=== PATIENT | male | born 1970 | race Caucasian/White ===

== ENCOUNTER 2016-12-21 09:10 | Inpatient (IN) | payer BC ==
--- NOTE | 2016-12-21 09:14 | PDOC ---
Attending Attestation - Resident Resident Name: Joe Hyatt - ED Attending Attestation I have performed the following: I have examined & evaluated the patient, The case was reviewed & discussed with the resident, I agree w/resident's findings & plan, Exceptions are as noted - HPI HPI: 12/21/16 09:20 The patient is a 46 year old male with a significant past medical history of diverticulosis, anxiety and MARTIR, who presents to the ED complaining of abdominal pain, nausea, vomiting and diarrhea. He was constipated last week and took an over the counter laxative (diarrhea). He denies fever. - Physicial Exam PE: 12/21/16 09:21 He is well appearing and in no acute distress Abdomen is soft with minimal tenderness in the left lower quadrant 12/21/16 09:35 12/21/16 14:58 - Medical Decision Making 12/21/16 09:37 He is well appearing and in no pain He has mild left lower quadrant tenderness on deep palpation He is anxious, however Will obtain basic labs 12/21/16 10:52 Case discussed with PCP who verifies that hemoglobin is near baseline and that his polycythemia is chronic and due to MARTIR Low bicarbonate noted, with normal anion gap I suspect this is a metabolic compensation for a respiratory alkalosis due to anxiety Will administer additional IVF Will obtain lactic acid to further exclude bowel ischemia 12/21/16 11:35 CRP elevation noted GIven the LLQ tenderness and elevated CRP, will obtain CT of the abdomen and pelvis 12/21/16 14:43 CT noted, with evidence of possible small bowel obstruction Of note, given his diarrhea, complete SBO seems extremely unlikely ? partial SBO vs dialated lops of small bowel in the context of a diarrheal illness Clinical impression: Small bowel obstruction Polycythemia vera Will admit Inpatient team to consult surgery 12/21/16 14:58 <Mustapha Bah - Last Filed: 12/21/16 15:00> ED Treatment Course - LABORATORY CBC & Chemistry Diagram: 12/21/16 09:40 12/21/16 09:40 - ADDITIONAL ORDERS Additional order review: Laboratory Results 12/21/16 12/21/16 12/21/16 10:55 09:40 09:40 Sodium 135 L Potassium 4.5 D Chloride 111 H Carbon Dioxide 17 L D Anion Gap 7 L BUN 28 H D Creatinine 0.9 Creat Clearance w eGFR > 60 Random Glucose 127 H D Lactic Acid 0.620 Calcium 10.2 Total Bilirubin 1.3 H D AST 25 ALT 23 Alkaline Phosphatase 93 H C-Reactive Protein 1.8 H Total Protein 8.7 H Albumin 5.2 H Lipase 30 12/21/16 09:40 RBC 5.92 H D MCV 90.9 MCHC 34.1 RDW 13.3 MPV 7.9 Neutrophils % 66.9 Lymphocytes % 16.8 D Monocytes % 12.9 H Eosinophils % 1.4 D Basophils % 2.0 D - RADIOLOGY Radiograph Interpretation: 12/21/16 14:54 CT Abdomen/Pelvis Impression: Several dilated proximal small bowel loops are noted which could be on the basis of obstruction versus probably less likely a localized ileus. No gross obstructing lesion is identified on this exam. There appears to be either nonspecific eccentric inferior rectal wall thickening (versus representing adherent debris). Correlation with colonoscopy is suggested. Increased intraluminal fluid is seen within the colon and distal small bowel which could be on the basis of recurrent diarrheal illness. Reported By: Miguel Ángel Solo MD - Medications Given in the ED: ED Medications Discontinued Medications Generic Name Dose Route Start Last Admin Trade Name Freq PRN Reason Stop Dose Admin Sodium Chloride 1,000 mls @ 1,000 mls/hr 12/21/16 10:52 12/21/16 11:04 Normal Saline - IV 12/21/16 11:51 1,000 mls/hr ASDIR STA Administration Ondansetron HCl 4 mg 12/21/16 09:38 12/21/16 09:50 Zofran Odt - SL 12/21/16 09:39 4 mg ONCE ONE Administration Ondansetron HCl 4 mg 12/21/16 10:30 12/21/16 10:30 Zofran Injection IVPUSH 12/21/16 10:31 4 mg ONCE ONE Administration <Alissa Lopez - Last Filed: 12/21/16 14:54> - LABORATORY CBC & Chemistry Diagram: 12/21/16 09:40 12/21/16 09:40 <Mustapha Bah - Last Filed: 12/21/16 15:00>
[2016-12-21 09:18] VITALS: BMI 30.1
[2016-12-21] MEDS ORDERED: ONDANSETRON *ODT* 4 MG TABLET SL ONE (09:38)
[2016-12-21] MEDS: SODIUM CHLORIDE 1,000 ML IV SCH (09:45)
[2016-12-21] MEDS ORDERED: ONDANSETRON *ODT* 4 MG TABLET ONE (09:49)
[2016-12-21 09:50] LABS: EOSINOPHIL 1.4 % (0-4.5); MCHC 34.1 g/dl (32.0-35.9); MEAN CELL VOLUME 90.9 fl (80-96); MEAN PLT VOLUME 7.9 fl (7.5-11.1); NEUTROPHILS 66.9 % (42.8-82.8); PLATELET COUNT 337 K/MM3 (134-434); RDW 13.3 % (11.9-15.9); WHITE BLOOD COUNT 9.2 K/mm3 (4.0-10.8)
--- NOTE | 2016-12-21 09:54 | PDOC ---
History of Present Illness - General Chief Complaint: Pain Stated Complaint: NAUSEA, ABD PAIN, DIARRHEA Time Seen by Provider: 12/21/16 09:14 History Source: Patient Exam Limitations: No Limitations - History of Present Illness Travel History: No Initial Comments: 46 yo M with MARTIR and polycythemia presented to the ED with watery diarrhea x 3 days. The diarrhea is associated with lower quadrants pain and nausea. The abd pain is constant, pressure-like, 6/10, radiates to the back. He denies lactose intolerance, sick contact, recent travel, fever, chills, chest pain. Past History - Past Medical History Allergies/Adverse Reactions: Allergies Allergy/AdvReac Type Severity Reaction Status Date / Time No Known Allergies Allergy Verified 12/21/16 09:11 Home Medications: Ambulatory Orders Amlodipine Besylate 5 mg PO DAILY 12/21/16 Paroxetine HCl [Paxil] 40 mg PO DAILY 12/21/16 Sennosides [Senna -] 1 tab PO HS 12/21/16 GI Disorders: Yes (CONSTIPATION) HTN: Yes Psychiatric Problems: Yes (ANXIETY) Other medical history: SLEEP APNEA - Psycho/Social/Smoking Cessation Hx Anxiety: Yes Suicidal Ideation: No Smoking History: Former smoker Have you smoked in the past 12 months: No Number of Cigarettes Smoked Daily: 0 Information on smoking cessation initiated: No Hx Alcohol Use: No Drug/Substance Use Hx: No Substance Use Type: None Abd/GI Specific PMHX - Complaint Specific PMHX GERD: Yes (?) Review of Systems - Review of Systems Constitutional: No: Chills, Fever, Weakness HEENTM: No: Recent change in vision Respiratory: No: Cough, Shortness of Breath Cardiac (ROS): No: Chest Pain ABD/GI: Yes: Diarrhea, Nausea, Poor Appetite, Poor Fluid Intake, Abdominal cramping. No: Abdominal Distended, Rectal Bleeding, Vomiting : No: Dysuria Neurological: No: Headache, Numbness, Tingling *Physical Exam - Vital Signs Last Vital Signs Temp Pulse Resp BP Pulse Ox 98 F 102 H 20 126/91 98 12/21/16 09:10 12/21/16 09:10 12/21/16 09:10 12/21/16 09:10 12/21/16 09:10 - Physical Exam General Appearance: No: Apparent Distress Respiratory/Chest: positive: Lungs Clear, Normal Breath Sounds Cardiovascular: positive: Regular Rhythm, Regular Rate, S1, S2. negative: Murmur Gastrointestinal/Abdominal: positive: Increased Bowel Sounds. negative: Distended, Guarding, Rebound, Tenderness Neurologic: positive: senior marketing data analyst II-XII NML intact, Fully Oriented, Alert ED Treatment Course - LABORATORY CBC & Chemistry Diagram: 12/21/16 09:40 12/21/16 09:40 Medical Decision Making - Medical Decision Making 12/21/16 09:56 Will obtain blood work 12/21/16 14:47 CRP is elevated and *DC/Admit/Observation/Transfer Diagnosis at time of Disposition: SBO (small bowel obstruction) - Discharge Dispostion Condition at time of disposition: Stable Admit: Yes
[2016-12-21 10:08] LABS: ALBUMIN 5.2 g/dl (3.5-5.0); ALK PHOS 93 U/L (32-92); ANION GAP 7 (8-16); BILIRUBIN,TOTAL 1.3 mg/dl (0.2-1.0); CALCIUM 10.2 mg/dl (8.4-10.2); CO2 17 mmol/L (22-28); COCKROFT - GAULT 165.35; CREATININE 0.9 mg/dl (0.6-1.3); GLUCOSE,RANDOM 127 mg/dl (74-106); SGOT/AST 25 U/L (10-42); SGPT/ALT 23 U/L (10-40); TOT PROT 8.7 g/dl (6.4-8.3)
[2016-12-21] MEDS ORDERED: ONDANSETRON 4 MG/2 ML VIAL IVPUSH ONE (10:30)
[2016-12-21] MEDS ORDERED: ONDANSETRON 4 MG/2 ML VIAL ONE ×2 (10:30→10:31)
[2016-12-21] MEDS ORDERED: SODIUM CHLORIDE 1,000 ML IV STA (10:52)
[2016-12-21] MEDS ORDERED: ONDANSETRON 4 MG/2 ML VIAL IVPUSH PRN (20:02)
--- NOTE | 2016-12-21 22:10 | PN ---
Progress Note (short form) - Note Progress Note: surgery pt seen and examined. full consult dictated. 46m with virgin abd, admitted for diarrhea and abd pain. Ct shows thickening or rectum with some mildly dilated proximal small bowel loops. Previous colonoscopy 14 years ago for blood in stool. wbc wnl. On exam pt is comfortable, no ngt, watching tv. abd is soft, nt, nd Plan- clinically no mechanical sbo. likely colitis with mild ileus. will get kub in am to confirm contrast in colon. consider gi eval. No indication for surgical exploration.
--- NOTE | 2016-12-21 22:13 | HP ---
CHIEF COMPLAINT: Constipation, LLQ Pain PCP: DR. Haynes HISTORY OF PRESENT ILLNESS: This is a 46 year old male with a past medical history of Hypertension, Polycythemia, Anxiety, MARTIR. Who presents to the emergency department with constipation x 1 week and LLQ pain. Patient reports taking Senna since last Friday per his PMD, then started having episodes of watery diarrhea on . He reports continuing the Senna, then developed LLQ pain today. Patient reports being chronically constipated secondary to his poor eating habits "junk food" and only eating 1-2 meals daily. Patient denies fever, chills , dizziness, cough, CP, N/V, dysuria. Patient reports having a colonoscopy 14 yrs ago- negative ER course was notable for: (1) CTAP- Several dilated proximal small bowel loops obstruction vs less likely localized ileus (2) CRP 18 (3) H/H Recent Travel: None PAST MEDICAL HISTORY: See HPI PAST SURGICAL HISTORY: See HPI Social History: Smoking: Former- cigarettes 20yr history Alcohol: Occasional Drugs: Former- Marijuana as a teenager Lives alone, employed Technical Implementation Lead Family History: Mother: HTN Brother: HTN Grandfather: Colon Ca Allergies No Known Allergies Allergy (Verified 12/21/16 09:11) HOME MEDICATIONS: Home Medications Medication Instructions Recorded Amlodipine Besylate 5 mg PO DAILY 12/21/16 Paroxetine HCl [Paxil] 40 mg PO DAILY 12/21/16 Sennosides [Senna -] 1 tab PO HS 12/21/16 REVIEW OF SYSTEMS CONSTITUTIONAL: Absent: fever, chills, diaphoresis, generalized weakness, malaise, loss of appetite, weight change HEENT: Absent: rhinorrhea, nasal congestion, throat pain, throat swelling, difficulty swallowing, mouth swelling, ear pain, eye pain, visual changes CARDIOVASCULAR: Absent: chest pain, syncope, palpitations, irregular heart rate, lightheadedness , peripheral edema RESPIRATORY: Absent: cough, shortness of breath, dyspnea with exertion, orthopnea, wheezing, stridor, hemoptysis GASTROINTESTINAL: abdominal pain, diarrhea, constipation Absent: abdominal distension, nausea, vomiting, melena, hematochezia GENITOURINARY: Absent: dysuria, frequency, urgency, hesitancy, hematuria, flank pain, genital pain MUSCULOSKELETAL: Absent: myalgia, arthralgia, joint swelling, back pain, neck pain SKIN: Absent: rash, itching, pallor HEMATOLOGIC/IMMUNOLOGIC: Absent: easy bleeding, easy bruising, lymphadenopathy, frequent infections ENDOCRINE: Absent: unexplained weight gain, unexplained weight loss, heat intolerance, cold intolerance NEUROLOGIC: Absent: headache, focal weakness or paresthesias, dizziness, unsteady gait, seizure, mental status changes, bladder or bowel incontinence PSYCHIATRIC: Absent: anxiety, depression, suicidal or homicidal ideation, hallucinations. PHYSICAL EXAMINATION Vital Signs - 24 hr 12/21/16 12/21/16 12/21/16 18:21 19:44 21:00 Temperature 98.4 F Pulse Rate 82 Respiratory 18 Rate Blood Pressure 127/79 O2 Sat by Pulse 95 97 Oximetry (%) GENERAL: Awake, alert, and fully oriented, in no acute distress. HEAD: Normal with no signs of trauma. EYES: Pupils equal, round and reactive to light, extraocular movements intact, sclera anicteric, conjunctiva clear. No lid lag. EARS, NOSE, THROAT: Ears normal, nares patent, oropharynx clear without exudates. Moist mucous membranes. NECK: Normal range of motion, supple without lymphadenopathy, JVD, or masses. LUNGS: Breath sounds equal, clear to auscultation bilaterally. No wheezes, and no crackles. No accessory muscle use. HEART: Regular rate and rhythm, normal S1 and S2 without murmur, rub or gallop. ABDOMEN: Soft, nontender, not distended, normoactive bowel sounds, no guarding, no rebound, no masses. No hepatomegaly or splenomegaly. MUSCULOSKELETAL: Normal range of motion at all joints. No bony deformities or tenderness. No CVA tenderness. UPPER EXTREMITIES: 2+ pulses, warm, well-perfused. No cyanosis. No clubbing. No peripheral edema. LOWER EXTREMITIES: 2+ pulses, warm, well-perfused. No calf tenderness. No peripheral edema. NEUROLOGICAL: Cranial nerves II-XII intact. Normal speech. Normal gait. PSYCHIATRIC: Cooperative. Good eye contact. Appropriate mood and affect. SKIN: Warm, dry, normal turgor, no rashes or lesions noted, normal capillary refill. Laboratory Results - last 24 hr 3 12/21/16 12/21/16 12/21/16 09:40 09:40 09:40 WBC 9.2 D RBC 5.92 H D Hgb 18.4 H D Hct 53.8 H D MCV 90.9 MCHC 34.1 RDW 13.3 Plt Count 337 D MPV 7.9 Neutrophils % 66.9 Lymphocytes % 16.8 D Monocytes % 12.9 H Eosinophils % 1.4 D Basophils % 2.0 D Sodium 135 L Potassium 4.5 D Chloride 111 H Carbon Dioxide 17 L D Anion Gap 7 L BUN 28 H D Creatinine 0.9 Creat Clearance w eGFR > 60 Random Glucose 127 H D Lactic Acid Calcium 10.2 Total Bilirubin 1.3 H D AST 25 ALT 23 Alkaline Phosphatase 93 H C-Reactive Protein 1.8 H Total Protein 8.7 H Albumin 5.2 H Lipase 30 3 12/21/16 10:55 WBC RBC Hgb Hct MCV MCHC RDW Plt Count MPV Neutrophils % Lymphocytes % Monocytes % Eosinophils % Basophils % Sodium Potassium Chloride Carbon Dioxide Anion Gap BUN Creatinine Creat Clearance w eGFR Random Glucose Lactic Acid 0.620 Calcium Total Bilirubin AST ALT Alkaline Phosphatase C-Reactive Protein Total Protein Albumin Lipase - RADIOLOGY Radiograph Interpretation: 12/21/16 14:54 CT Abdomen/Pelvis Impression: Several dilated proximal small bowel loops are noted which could be on the basis of obstruction versus probably less likely a localized ileus. No gross obstructing lesion is identified on this exam. There appears to be either nonspecific eccentric inferior rectal wall thickening (versus representing adherent debris). Correlation with colonoscopy is suggested. Increased intraluminal fluid is seen within the colon and distal small bowel which could be on the basis of recurrent diarrheal illness. Reported By: Miguel Ángel Solo MD ASSESSMENT/PLAN: This is a 46 y/o male with a PMHx of: HTN, Polycythemia, Anxiety, MARTIR. Admitted for Partial SBO for further evaluation of their emergent condition. Plan 1. GI: Partial SBO - CTAP- see above - No WBC or elevated LA - Appreciate Surgical Consult - Continue IVF - Continue Zofran prn - Appreciate GI Consult - KUB in am per Surgery - NPO - Repeat CBC, BMP in am 2. HTN - Well Controlled - Monitor BP - Will resume home meds when cleared by GI 3. Polycythemia - Continue to monitor and treat with interventions accordingly 4. Anxiety - Continue Paxil 5. MARTIR - Patient admits to being non-complaint with his CPAP - CPAP HS 6. FEN - NS@150cc/hr - Replete lytes prn - NPO 7. DVT/PPI Prophylaxis - OOB - SCDs - PPI Code Status: Full Code Dispo: Continue Inpatient Care Problem List - Problem (1) Anxiety Code(s): F41.9 - ANXIETY DISORDER, UNSPECIFIED (2) Dehydration Code(s): E86.0 - DEHYDRATION (3) Gastroenteritis Code(s): K52.9 - NONINFECTIVE GASTROENTERITIS AND COLITIS, UNSPECIFIED (4) Polycythemia Code(s): D75.1 - SECONDARY POLYCYTHEMIA (5) Partial small bowel obstruction Code(s): K56.69 - OTHER INTESTINAL OBSTRUCTION (6) HTN (hypertension) Code(s): I10 - ESSENTIAL (PRIMARY) HYPERTENSION (7) DVT prophylaxis Code(s): HBB7012 - Visit type - Emergency Visit Emergency Visit: Yes ED Registration Date: 12/21/16 Care time: The patient presented to the Emergency Department on the above date and was hospitalized for further evaluation of their emergent condition. - New Patient This patient is new to me today: Yes Date on this admission: 12/21/16 - Critical Care Critical Care patient: No
--- NOTE | 2016-12-21 22:46 | CONS ---
DATE OF CONSULTATION: 12/21/2016 REASON FOR CONSULTATION: Small bowel obstruction. This is a consultation as request of the emergency room physician; thus, emergency room consultation. BRIEF HISTORY: This is a 46-year-old male without significant past medical history who states, for the past 3 days, he has had diarrhea and some lower abdominal pain. Because of this, he came to the [facility], where he was noted to have a normal white blood cell count. He went for a CT scan of his abdomen and pelvis, which showed mildly dilated small bowel loops with thickening of the rectum, where the differential included the possibility of a partial mechanical bowel obstruction. The patient was admitted to the hospital without nasogastric tube decompression. He currently feels well and request was made for surgical evaluation for possible exploration. The patient denies blood in his stool. He states, 13 years ago, there was blood in his stool and he went for a colonoscopy, which was unremarkable. He denies recent weight loss. PAST MEDICAL HISTORY: Otherwise negative, except sleep apnea. PAST SURGICAL HISTORY: Nil. SOCIAL HISTORY: Positive for occasional alcohol consumption, negative for tobacco. FAMILY HISTORY: Father with lymphoma. He has no known drug allergies. He takes Norvasc, Paxil, and Senna. REVIEW OF SYSTEMS: General: He denies fatigue or malaise. Cardiac: He denies chest pain or palpitations. Respiratory: He denies shortness of breath or wheeze. Gastrointestinal: As in HPI. Genitourinary: He denies dysuria. Musculoskeletal: He denies joint pain, joint swelling. Psychiatric: He denies thought pressuring, voices. PHYSICAL EXAMINATION: General: This is an obese 46-year-old male in no distress. Vital Signs: He is afebrile. His vital signs are stable. HEENT: His head is normocephalic. His sclerae are anicteric. Neck: Supple. Chest: Clear. Abdomen: Soft, nontender, nondistended. Extremities: No edema. REVIEW OF LABORATORIES: White blood cell count is 9.2. He is hemoconcentrated with a hemoglobin of 18.4. His chemistries show hyponatremia with sodium of 135, hyperchloremia with chloride of 111. He shows a mild acidosis with a carbon dioxide of 17. His alkaline phosphatase is mildly elevated at 93 and his lipase is normal. REVIEW OF IMAGING: He has a CT scan of his abdomen and pelvis, which shows thickening of his rectum with some mildly dilated proximal bowel loops and the possibility of mechanical small bowel obstruction, as mentioned by the radiologist. ASSESSMENT: This is a 46-year-old male, obese, admitted for 3 days of diarrhea and mild abdominal pain. CT scan mentions the possibility of a bowel obstruction based on mildly dilated proximal loops. There is also thickening noted of the rectum. Clinically, he does not have a mechanical bowel obstruction. He has, essentially, a benign abdominal examination. He does not have a nasogastric tube in place and he is watching television quite comfortably. He also has a virgin abdomen, which makes this very low in the differential. At this point, I suspect he has some sort of a colitis. RECOMMEND: Consideration to GI evaluation. I will order an abdominal x-ray for tomorrow, which should confirm migration of contrast into the colon. Currently, there is no indication for emergent surgical exploration. DO ELEAZAR HERNANDEZ/[id number]
[2016-12-22 08:41] LABS: BASOPHIL 0.9 % (0-2.0); EOSINOPHIL 3.6 % (0-4.5); MCH 30.5 pg (25.7-33.7); MCHC 33.3 g/dl (32.0-35.9); MEAN CELL VOLUME 91.6 fl (80-96); MEAN PLT VOLUME 7.9 fl (7.5-11.1); NEUTROPHILS 67.4 % (42.8-82.8); PLATELET COUNT 255 K/MM3 (134-434); RDW 13.2 % (11.9-15.9); WHITE BLOOD COUNT 6.2 K/mm3 (4.0-10.8)
[2016-12-22 09:00] LABS: INR 1.13 (0.82-1.09); PROTHROMBIN TIME (PATIENT) 12.6 SEC (10.2-13.0)
[2016-12-22 09:05] LABS: ANION GAP 7 (8-16); CALCIUM 9.2 mg/dl (8.4-10.2); CO2 21 mmol/L (22-28); CREATININE 0.7 mg/dl (0.6-1.3); GLUCOSE,RANDOM 85 mg/dl (74-106)
[2016-12-22 09:14] LABS: COCKROFT - GAULT NT
[2016-12-22] MEDS: SODIUM CHLORIDE 1,000 ML IV SCH (09:54)
[2016-12-22] MEDS ORDERED: PARoxetine HCL 20 MG TABLET (FP) PO SCH ×2 (10:00→22:00)
--- NOTE | 2016-12-22 12:55 | PN ---
Progress Note (short form) - Note Progress Note: surgery kub confirms no mechanical sbo. diet and diarrhea per medical service. no indication for surgery.
[2016-12-22] MEDS ORDERED: SODIUM CHLORIDE 1,000 ML IV SCH (14:42)
--- NOTE | 2016-12-22 14:44 | PN ---
Physical Exam: SUBJECTIVE: Patient seen and examined. He has not had an diarrhea today. He had several movements yesterday. OBJECTIVE: Vital Signs Period Temp Pulse Resp BP Sys/Valdovinos Pulse Ox Last 24 Hr 98.1 F-98.4 F 71-83 18-19 127-145/76-88 95-100 PE Neuro: alert, awake, cn 2-12intact Pulm: CTAB CV: s1 s2 rrr no mrg Abd: s nt nd + bs Ext: warm, no le edema Laboratory Results - last 24 hr 12/22/16 12/22/16 12/22/16 06:00 06:00 06:00 WBC 6.2 D RBC 5.36 Hgb 16.4 D Hct 49.1 H MCV 91.6 MCHC 33.3 RDW 13.2 Plt Count 255 D MPV 7.9 Neutrophils % 67.4 Lymphocytes % 18.8 Monocytes % 9.3 Eosinophils % 3.6 D Basophils % 0.9 INR 1.13 Sodium 139 Potassium 4.7 Chloride 111 H Carbon Dioxide 21 L D Anion Gap 7 L BUN 21 H D Creatinine 0.7 D Random Glucose 85 D Calcium 9.2 Blood Type Antibody Screen Active Medications Generic Name Dose Route Start Last Admin Trade Name Freq PRN Reason Stop Dose Admin Ondansetron HCl 4 mg 12/21/16 20:02 Zofran Injection IVPUSH Q6H PRN NAUSEA AND/OR VOMITING Assessment: 46 year old male with a PMHx of: HTN, Polycythemia, Anxiety, MARTIR admitted with diarrhea. Plan: 1. Partial SBO - KUB negative for mechanical SBO - Advance to clears diet - No surgical intervention at this time 2. Diarrhea - Send C diff - Hold senna 3. HTN - Restart norvasc 4. Polycythemia - Improved with fluids 5. Anxiety - Continue Paxil HS 6. MARTIR - Patient admits to being non-complaint with his CPAP - CPAP HS 7. Metabolic acidosis - Recheck levels in AM - Give sodium bicarb is level still low Visit type - Emergency Visit Emergency Visit: Yes ED Registration Date: 12/21/16 Care time: The patient presented to the Emergency Department on the above date and was hospitalized for further evaluation of their emergent condition. - New Patient This patient is new to me today: Yes Date on this admission: 12/22/16 - Critical Care Critical Care patient: No
[2016-12-22] MEDS ORDERED: amLODIPine BESYLATE 5 MG TABLET (FP) PO SCH ×2 (14:45→22:00)
[2016-12-23 09:00] LABS: ANION GAP 5 (8-16); BASOPHIL 0.4 % (0-2.0); CO2 23 mmol/L (22-28); CREATININE 0.7 mg/dl (0.6-1.3); EOSINOPHIL 4.1 % (0-4.5); GLUCOSE,RANDOM 94 mg/dl (74-106); MCH 30.2 pg (25.7-33.7); MCHC 33.2 g/dl (32.0-35.9); MEAN PLT VOLUME 7.8 fl (7.5-11.1); NEUTROPHILS 69.5 % (42.8-82.8); PLATELET COUNT 246 K/MM3 (134-434); WHITE BLOOD COUNT 5.7 K/mm3 (4.0-10.8)
[2016-12-23 09:20] VITALS: PULSE 77
--- NOTE | 2016-12-23 11:53 | PN ---
Progress Note (short form) - Note Progress Note: Patient seen and chart/labs reviewed; consult dictated. Patient with hx chronic constipation who was given Senna last week; developed diarrhea, nausea and abdominal pain 3 days later. Admitted with GI symptoms and ?SBO vs ileus. Has clinically improved and is now tolerating PO. No abdominal pain or cramps and no fever/chills. Unclear if patient had reaction to Senna, coincidental gastroenteritis or less likely SBO. Would advance diet and consider d/c home this pm if stable; can follow as outpatient. Would use Miralax powder daily prn constipation
--- NOTE | 2016-12-23 12:21 | EKG ---
Test Reason : Blood Pressure : / mmHG Vent. Rate : 090 BPM Atrial Rate : 090 BPM P-R Int : 178 ms QRS Dur : 110 ms QT Int : 356 ms P-R-T Axes : 033 049 042 degrees QTc Int : 435 ms NORMAL SINUS RHYTHM NORMAL ECG NO PREVIOUS ECGS AVAILABLE Confirmed by KANDACE LEES MD ([id number]) on 12/23/2016 12:21:44 PM Referred By: PALOMA VILLEDA Confirmed By:KANDACE LEES MD
[2016-12-23] MEDS ORDERED: MAGNESIUM SULF 50% (8.12 MEQ/2 ML-1 GM VIAL) IVPB ONE (13:00)
--- NOTE | 2016-12-23 13:00 | DS ---
Physical Exam: SUBJECTIVE: Patient seen and examined, patient reports feeling much better, denies any abdomimnal painm OBJECTIVE:This is a 46 year old male with a past medical history of Hypertension , Polycythemia, Anxiety, MARTIR. Who presents to the emergency department with constipation x 1 week and LLQ pain. Patient reports taking Senna since last Friday per his PMD, then started having episodes of watery diarrhea on . He reports continuing the Senna, then developed LLQ pain today. Patient reports being chronically constipated secondary to his poor eating habits "junk food" and only eating 1-2 meals daily. Patient denies fever, chills , dizziness, cough, CP, N/V, dysuria. Patient reports having a colonoscopy 14 yrs ago- negative ER course was notable for: (1) CTAP- Several dilated proximal small bowel loops obstruction vs less likely localized ileus (2) CRP 18 (3) H/H Vital Signs Period Temp Pulse Resp BP Sys/Valdovinos Pulse Ox Last 24 Hr 97.7 F-98.4 F 71-77 18-18 127-145/75-84 94-95 PHYSICAL EXAM GENERAL: The patient is awake, alert, and fully oriented, in no acute distress. HEAD: Normal with no signs of trauma. EYES: PERRL, extraocular movements intact, sclera anicteric, conjunctiva clear. ENT: Ears normal, nares patent, oropharynx clear without exudates, moist mucous membranes. NECK: Trachea midline, full range of motion, supple. LUNGS: Breath sounds equal, clear to auscultation bilaterally, no wheezes, no crackles, no accessory muscle use. HEART: Regular rate and rhythm, S1, S2 without murmur, rub or gallop. ABDOMEN: Soft, obese, nontender, nondistended, normoactive bowel sounds, no guarding, no rebound, no hepatosplenomegaly, no masses. EXTREMITIES: 2+ pulses, warm, well-perfused, no edema. NEUROLOGICAL: Cranial nerves II through XII grossly intact. Normal speech, gait not observed. PSYCH: Normal mood, normal affect. SKIN: Warm, dry, normal turgor, no rashes or lesions noted. LABS Laboratory Results - last 24 hr 12/22/16 12/22/16 12/23/16 06:00 06:00 07:28 WBC 5.7 RBC 4.86 Hgb 14.7 D Hct 44.3 MCV 91.0 MCHC 33.2 RDW 13.0 Plt Count 246 MPV 7.8 Neutrophils % 69.5 Lymphocytes % 18.6 Monocytes % 7.4 Eosinophils % 4.1 Basophils % 0.4 Sodium Potassium Chloride Carbon Dioxide Anion Gap BUN Creatinine Random Glucose Calcium Magnesium Blood Type O POSITIVE O POSITIVE Antibody Screen Negative 12/23/16 12/23/16 07:28 Unknown WBC RBC Hgb Hct MCV MCHC RDW Plt Count MPV Neutrophils % Lymphocytes % Monocytes % Eosinophils % Basophils % Sodium 138 Potassium 4.1 Chloride 110 H Carbon Dioxide 23 Anion Gap 5 L BUN 15 D Creatinine 0.7 Random Glucose 94 Calcium 9.0 Magnesium 1.7 L Blood Type Antibody Screen HOSPITAL COURSE: . Partial SBO - KUB negative for mechanical SBO - Advance to clears diet - No surgical intervention at this time 2. Diarrhea - Send C diff - Hold senna 3. HTN - Restart norvasc 4. Polycythemia - Improved with fluids 5. Anxiety - Continue Paxil HS 6. MARTIR - Patient admits to being non-complaint with his CPAP - CPAP HS 7. Metabolic acidosis - Recheck levels in AM - Give sodium bicarb is level still low SPITAL COURSE: Date of Admission:12/21/16 Date of Discharge: 12/23/16 Minutes to complete discharge: 45 Discharge Summary Reason For Visit: NAUSEA, ABD PAIN, DIARRHEA, SOB Current Active Problems DVT prophylaxis (Acute) HTN (hypertension) (Acute) Partial small bowel obstruction (Acute) SBO (small bowel obstruction) (Acute) Condition: Stable - Instructions Referrals: Dennis Haynes MD [Primary Care Provider] - - Home Medications Comprehensive Discharge Medication List: Ambulatory Orders Amlodipine Besylate 5 mg PO DAILY 12/21/16 Paroxetine HCl [Paxil] 40 mg PO DAILY 12/21/16 Sennosides [Senna -] 1 tab PO HS 12/21/16
[2016-12-23 14:06] VITALS: BP 136/84; TEMP 98.7
--- NOTE | 2016-12-23 14:37 | CONS ---
DATE OF CONSULTATION: 12/23/2016 REASON FOR CONSULTATION: I was asked to evaluate this 46-year-old gentleman admitted to the hospital with abdominal pain and diarrhea. HISTORY: The patient is a 46-year-old gentleman with a history of sleep apnea, anxiety, and hypertension as well as chronic constipation. He states that he usually has 1 bowel movement every 3-4 days and was placed on Senna early next week by his primary care doctor, Dr. Haynes. He started to have some diarrhea with abdominal pain and nausea on and was admitted to the hospital with the aforementioned complaints on December 21. The patient had apparently some mild left lower quadrant tenderness along with anxiety. He also apparently has a history of diverticulosis. The patient had a CAT scan of the abdomen and pelvis, which showed several dilated loops of proximal small bowel obstruction versus ileus but no other significant abnormalities. His laboratory tests included a white count of 9.2, hematocrit 53.8, which on hydration has decreased to 49 and now 44.3, and normal electrocautery with a BUN of 28, creatinine 0.9, which with hydration went to 15 and 0.7 consistent with dehydration. His liver chemistries were unremarkable. The patient was seen by Dr. Granda of Surgery and also given IV fluids. He has clinically improved during the course of the hospital stay and currently is tolerating a soft diet without problem. His laboratory tests today include a white count of 5.7, hemoglobin 14.7, hematocrit 44.3. He states he had a colonoscopy at age 33 for rectal bleeding and was told of having hemorrhoids, but as mentioned, has only had chronic constipation as his GI complaint over a period of many years. PHYSICAL EXAMINATION: General: He is a well-developed, well-nourished gentleman. HEENT: [place] conjunctivae. Lungs: Clear. Heart: Irregular rate and rhythm. Abdomen: Soft, flat. Normoactive bowel sounds. No tenderness or mass. IMPRESSION/PLAN: Patient with chronic constipation and underlying anxiety apparently placed on Senna last week for the constipation and several days later developed diarrhea, abdominal pain, and some mild discomfort. Currently asymptomatic. May have had a reaction to Senna versus a coincidental gastroenteritis question viral or food infection. Had a CAT scan consistent with an ileus versus small bowel obstruction but clinically appears to have likely had an ileus. No white count but did receive fluids for dehydration. At the present time, tolerating p.o. and can consider discharge later today. Would suggest the patient begin either MiraLAX daily or every other day or alternatively Kathy-Colace. We will follow as an outpatient with recommendations as needed. KORI DENG M.D. [id number]
== END 2016-12-23 14:46 | disposition home or self-care (01) | DRG 389 ==
LOC: FER 09:10 → FM/S 16:07
PROVIDERS: ADMIT Internal Medicine; ATTEND Nurse Practitioner Family
DX: K56.7 Ileus, unspecified (principal); E87.2 Acidosis; K52.9 Noninfective gastroenteritis and colitis, unspecified; G47.33 Obstructive sleep apnea (adult) (pediatric); D45 Polycythemia vera; K57.90 Diverticulosis of intestine, part unspecified, without perforation or abscess without bleeding
CPT/HCPCS: 36415; 71020-TC; 74000-TC; 74177-TC; 80048; 80053; 83605; 83690; 83735; 85025; 85610; 86140; 86850; 86900; 86901; 87324; 87449; 93005; 99285-25

== ENCOUNTER 2022-12-30 16:48 | Emergency (ER) | payer BC ==
[2022-12-30 17:05] VITALS: RESP 20; BMI 26.1
[2022-12-30 18:25] VITALS: BP 148/98; PULSE 89; TEMP 99.5
== END 2022-12-30 18:32 | disposition home or self-care (01) ==
LOC: FER 16:48
DX: R05.1 Acute cough (principal); J20.9 Acute bronchitis, unspecified; J18.9 Pneumonia, unspecified organism
CPT/HCPCS: 71046-TC-FY; 99283-25

== ENCOUNTER 2023-12-13 01:17 | Emergency (ER) | payer BC ==
[2023-12-13 01:22] VITALS: BMI 26.1
[2023-12-13] MEDS ORDERED: MAG HYDROX/AL HYDROX/SIMETH 30 ML UNIT-DOSE CUP ONE (01:33)
[2023-12-13] MEDS: MAG HYDROX/AL HYDROX/SIMETH 30 ML UNIT-DOSE CUP PO ONE (01:43)
[2023-12-13] MEDS: morphine CARPU-JECT 2 MG/1 ML DISP.SYRIN IVPUSH ONE (01:43)
[2023-12-13] MEDS: SODIUM CHLORIDE 0.9% 500 ML INFUS.BAG IV ONE (01:43)
[2023-12-13 02:20] VITALS: BP 144/97; PULSE 70; RESP 16; TEMP 98.4
[2023-12-13 02:42] LABS: BASO % 0.6 % (0-2.0); EOS % 0.6 % (0-4.5); HEMOGLOBIN 15.1 GM/dL (11.7-16.9); LYMPH % 10.5 % (8-40); MCHC 34.3 g/dl (32.0-35.9); MEAN CELL VOLUME 90.4 fl (80-96); MEAN PLT VOLUME 7.6 fl (7.5-11.1); MONO % 3.9 % (3.8-10.2); NEUT % 84.4 % (42.8-82.8); PLATELET COUNT 252 10^3/uL (134-434); RBC 4.87 M/mm3 (4.00-5.60); RDW 13.7 % (11.9-15.9); WHITE BLOOD COUNT 8.1 K/mm3 (4.0-10.0)
[2023-12-13 03:02] LABS: POTASSIUM 3.7 mmol/L (3.5-5.1)
[2023-12-13 03:04] LABS: BLOOD UREA NITROGEN 15.9 mg/dL (7-18); CALCIUM 8.9 mg/dL (8.5-10.1)
[2023-12-13 03:07] LABS: CREATININE 0.8 mg/dL (0.55-1.3)
[2023-12-13 03:09] LABS: BILIRUBIN,TOTAL 0.5 mg/dL (0.2-1); TOT PROT 6.9 g/dl (6.4-8.2)
[2023-12-13] MEDS ORDERED: LACTULOSE 20 GM/30 ML UDC (FOR ORAL USE ONLY) ONE (03:33)
[2023-12-13] MEDS: LACTULOSE 20 GM/30 ML UDC (FOR ORAL USE ONLY) PO ONE (03:37)
[2023-12-13 04:05] LABS: URINE APPEARANCE CLEAR; URINE BILIRUBIN NEGATIVE (NEGATIVE); URINE COLOR YELLOW; URINE GLUCOSE (UA) NEGATIVE (NEGATIVE); URINE KETONE NEGATIVE (NEGATIVE); URINE LEUK ESTERASE NEGATIVE (NEGATIVE); URINE NITRITE NEGATIVE (NEGATIVE); URINE PROTEIN NEGATIVE (NEGATIVE); URINE UROBILINOGEN 0.2 mg/dL (0.2-1.0)
== END 2023-12-13 03:47 | disposition home or self-care (01) ==
LOC: FER 01:17
PROC: 3E030GC Introduction of Other Therapeutic Substance into Peripheral Vein, Open Approach (ICD-10-PCS; principal; 2023-12-13)
DX: K59.00 Constipation, unspecified (principal); R14.1 Gas pain; R10.32 Left lower quadrant pain; F41.9 Anxiety disorder, unspecified
CPT/HCPCS: 36415; 80053; 81003; 85025; 99284-25

== ENCOUNTER 2024-01-09 11:40 | Day surgery (SDC) | payer BC ==
[2024-01-05 17:19] VITALS: BMI 30.6
[2024-01-09 12:14] VITALS: RESP 18
[2024-01-09 12:45] VITALS: TEMP 97.8
[2024-01-09 13:23] VITALS: BP 124/73; PULSE 74
== END 2024-01-09 13:27 | disposition home or self-care (01) ==
LOC: FASU-ENDO 11:40
PROVIDERS: ATTEND Internal Medicine Gastroenterology
PROC: 0DBP8ZX Excision of Rectum, Via Natural or Artificial Opening Endoscopic, Diagnostic (ICD-10-PCS; principal; 2024-01-09 12:21)
DX: Z12.11 Encounter for screening for malignant neoplasm of colon (principal); K62.1 Rectal polyp; K64.1 Second degree hemorrhoids
CPT/HCPCS: 88305-TC